=== PATIENT | female | born 1970 | race Caucasian/White ===

== ENCOUNTER 2019-12-25 10:32 | Outpatient (CLI) | payer OTHER, SELFPAY ==
--- NOTE | ~2019-12-25 | MM_ITS ---
EXAMINATION: MM screening [facility] BI w haile HISTORY: Screening mammogram TECHNIQUE: Craniocaudal and mediolateral oblique 3-D tomosynthesis images were obtained and synthetic 2-D images were generated. CAD analysis was submitted and interpreted. COMPARISON: Comparison to multiple prior studies sequentially, with oldest reviewed study dated 06/2013. BREAST PARENCHYMAL COMPOSITION: There are scattered areas of fibroglandular density. FINDINGS: There is no evidence of suspicious mass, calcification, or architectural distortion to sugg est malignancy in either breast. There has been no suspicious interval change. IMPRESSION: 1. No mammographic evidence of malignancy. 2. Recommend routine screening mammography in one year. BI-RADS Category 1: Negative Reviewed, dictated and finalized at location A. UE PACKER
== END 2019-12-25 10:33 | disposition home or self-care (01) ==
PROVIDERS: PCP Family Medicine; Visit Provider Obstetrics & Gynecology
DX: Z12.31 Encounter for screening mammogram for malignant neoplasm of breast (principal)
CPT/HCPCS: 77063; 77067

== ENCOUNTER → 2021-08-07 01:25 | Outpatient (CLI) | payer OTHER, SELFPAY ==
[2021-08-07 18:06] LABS: SARS-CoV-2 RNA PCR Negative
== END ==
PROVIDERS: PCP Family Medicine; Visit Provider Physician Assistant
DX: R68.89 Other general symptoms and signs (principal); Z20.822 Contact with and (suspected) exposure to COVID-19
CPT/HCPCS: C9803; U0003; U0005

== ENCOUNTER 2021-12-08 08:46 | Outpatient (CLI) | payer OTHER, SELFPAY ==
--- NOTE | ~2021-12-08 | MM_ITS ---
EXAMINATION: MM screening [place] [facility] BI w haile HISTORY: Screening mammogram TECHNIQUE: Craniocaudal and mediolateral oblique 3-D tomosynthesis images were obtained and synthetic 2-D images were generated. CAD analysis was submitted and interpreted. COMPARISON: 12/25/2019, 07/10/2018, 08/24/2016 BREAST PARENCHYMAL COMPOSITION: There are scattered areas of fibroglandular density. FINDINGS: A waxing and waning mass in the medial right breast is consistent with a cyst. There is no evidence of suspicious mass, calcification, or architectural distortion to suggest malignancy in eith er breast. There has been no suspicious interval change. IMPRESSION: 1. No mammographic evidence of malignancy. 2. Recommend routine screening mammography in one year. BI-RADS Category 2: Benign finding(s). Reviewed, dictated and finalized at location A. E SUPERINTENDENT
== END 2021-12-08 08:47 | disposition home or self-care (01) ==
LOC: ANHIMG 08:50
PROVIDERS: PCP Family Medicine; Visit Provider Obstetrics & Gynecology
DX: Z12.31 Encounter for screening mammogram for malignant neoplasm of breast (principal)
CPT/HCPCS: 77063; 77067

== ENCOUNTER 2022-04-27 02:52 | Day surgery (SDC) | payer OTHER, SELFPAY ==
[2022-04-07 14:02] VITALS: BMI 34.4
[2022-04-27 06:46] VITALS: BP 138/61; PULSE 83; RESP 20; TEMP 36.4; O2SAT 100; BMI 34.3
[2022-04-27] MEDS: LACTATED RINGERS 1,000 ML 150 ML IV CONT (06:59)
--- NOTE | 2022-04-27 07:56 | WPDANESEPPF ---
Anes - Initial Pre Proc Eval Procedure: Operation Date: 04/27/22 08:00 Proposed Procedures p Screening Colonoscopy - Neil Tovar MD Date/Time: 04/27/22 07:56 Surgeon: Neil Tovar MD Pre Op Diagnosis: neoplasm screening Patient Data Age: 51 Gender: F Height: 1.63 m Weight: 90.7 kg Last Vital Signs Temp 97.5 F L 04/27/22 06:46 Pulse 83 04/27/22 06:46 Resp 20 04/27/22 06:46 BP 138/61 04/27/22 06:46 Pulse Ox 100 04/27/22 06:46 O2 Del Method Room Air 04/27/22 06:46 Allergies Allergy/AdvReac Type Severity Reaction Status Date / Time Margarine Allergy Severe Swelling Uncoded 04/27/22 06:37 Home Medications Medication Instructions Recorded Confirmed Type nortriptyline 25 mg capsule 25 mg PO DAILY 10/15/19 04/07/22 History omeprazole 20 mg capsule,delayed 40 mg PO DAILY 10/15/19 04/07/22 History release meloxicam 7.5 mg tablet 7.5 mg PO DAILY PRN pain, moderate 01/13/21 04/07/22 Rx #30 tabs phentermine 37.5 mg capsule 37.5 mg PO DAILY #30 caps 02/04/22 04/07/22 Rx doxycycline monohydrate 100 mg 100 cap DAILY 04/07/22 04/07/22 History capsule Patient hx anesthesia problems: none Family hx anesthesia problems: none Results Review: All pre-operative results and documents have been reviewed as part of the pre-operative evaluation. [facility] Past Medical History Medical History [place] Asthma Cornea ulcer DJD (degenerative joint disease) of knee Eczema Fibromyalgia GERD (gastroesophageal reflux disease) Herpes Hypertension Left knee DJD Right knee DJD Seasonal allergies UTI (urinary tract infection) Weight gain Surgical History Surgical History H/O foot surgery H/O tubal ligation History of endometrial ablation History of knee surgery Hx of appendectomy Hx of section Hx of gastric bypass Family History Family History Father Hypertension Family history of elevated blood lipids Malignant neoplasm of prostate Grandparent Hypertension Carcinoma of colon Family history of malignant neoplasm of breast Family history of coronary artery disease Diabetes mellitus Other Arthritis Cerebrovascular accident Family history of arthritis Family history of gout Family history of malignant neoplasm High cholesterol Neuropathy Social History Social History Second hand tobacco smoke exposure: No Alcohol intake: never Alcohol use details: A couple times per year Substance use: never Substance use type: does not use Living arrangements: with family Gender identity (if verbalized by the patient): Female Spiritual care concerns: No Anes - Eval Final PreProcedure Day of Procedure 04/27/22 07:56 Patient weight: obese Heart: regular rate and rhythm Lungs: clear to auscultation Airway: Mallampati scale class II Neurological: alert and oriented Last oral intake: >/= 8 hours ASA classification: II Emergent: no Anesthetic plan: proceed Anesthesia type and monitoring: general GIVS and standard monitoring Results Review: All pre-operative results and documents have been reviewed as part of the pre-operative evaluation. Informed Consent: The patient's anesthetic plan and its attendant risks and benefits were discussed with the patient/family/POA. Questions were solicited and answers provided to the satisfaction of the patient/family/POA.
--- NOTE | 2022-04-27 08:14 | PM.HPGS ---
History of Present Illness History of Present Illness Consent: Risks, benefits, and alternatives have been discussed and questions answered. Patient agrees to proceed with procedure. Chief complaint: neoplasm screening Narrative: Kathrine Suárez is a 51 year old female here for first screening colonoscopy Review of Systems Constitutional: Constitutional: Denies headache(s) and Denies weakness Eyes: Eyes: Denies blurry vision ENT: Reports Normal hearing present, Denies headache(s) and Denies neck pain Cardiovascular: Cardiovascular: Denies chest pain and Denies dyspnea Respiratory: Respiratory: Denies dyspnea Gastrointestinal: Gastrointestinal: Reports no additional gastrointestinal complaints Genitourinary: Genitourinary: Denies dysuria Musculoskeletal: Musculoskeletal: Denies neck pain Integumentary/Breasts: Skin/Breast: Denies dry skin Neurologic: Reports Normal hearing present, Denies headache(s) and Denies weakness Psychiatric: Psychiatric: Denies anxiety Endocrine: Endocrine: Denies change in body appearance Hematologic/Lymphatic: Hematologic/Lymphatic: Denies easy bleeding Allergic/Immunologic: Allergic/Immunologic: Denies urticaria PMFSH Past Medical History Medical History (Updated 04/27/22 @ 08:17 by Neil Tovar MD) [place] Asthma Colon cancer screening Cornea ulcer DJD (degenerative joint disease) of knee Eczema Fibromyalgia GERD (gastroesophageal reflux disease) Herpes Hypertension Left knee DJD Right knee DJD Seasonal allergies UTI (urinary tract infection) Weight gain Surgical History Surgical History H/O foot surgery H/O tubal ligation History of endometrial ablation History of knee surgery Hx of appendectomy Hx of section Hx of gastric bypass Family History Family History Father Hypertension Family history of elevated blood lipids Malignant neoplasm of prostate Grandparent Hypertension Carcinoma of colon Family history of malignant neoplasm of breast Family history of coronary artery disease Diabetes mellitus Other Arthritis Cerebrovascular accident Family history of arthritis Family history of gout Family history of malignant neoplasm High cholesterol Neuropathy Social History Social History Second hand tobacco smoke exposure: No Alcohol intake: never Alcohol use details: A couple times per year Substance use: never Substance use type: does not use Living arrangements: with family Gender identity (if verbalized by the patient): Female Spiritual care concerns: No Meds Home Medications and Allergies Home Medications Medication Instructions Recorded Confirmed Type nortriptyline 25 mg capsule 25 mg PO DAILY 10/15/19 04/07/22 History omeprazole 20 mg capsule,delayed 40 mg PO DAILY 10/15/19 04/07/22 History release meloxicam 7.5 mg tablet 7.5 mg PO DAILY PRN pain, moderate 01/13/21 04/07/22 Rx #30 tabs phentermine 37.5 mg capsule 37.5 mg PO DAILY #30 caps 02/04/22 04/07/22 Rx doxycycline monohydrate 100 mg 100 cap DAILY 04/07/22 04/07/22 History capsule Allergies Allergy/AdvReac Type Severity Reaction Status Date / Time Margarine Allergy Severe Swelling Uncoded 04/27/22 06:37 Vital Signs Vital Signs - 24 hr 04/27/22 06:46 Temperature 97.5 F L Pulse Rate 83 Respiratory Rate 20 Blood Pressure 138/61 Pulse Oximetry 100 Oxygen Delivery Room Air Exam Const: General: comfortable and no acute distress HENMT: General nose exam: Normal nares present Eyes: General: appearance normal, both eyes and all related structures Neck: Neck: no JVD Resp: Auscultation: clear to auscultation bilaterally Cardio: Rate: regular rate Rhythm: regular rhythm GI: Inspection: non-distended GI Palp: Yes Soft to p
[2022-04-27 08:32] VITALS: BP 103/60; PULSE 68; RESP 21; O2SAT 100
[2022-04-27 08:42] VITALS: BP 111/73; PULSE 63; RESP 18; O2SAT 100
[2022-04-27 08:52] VITALS: BP 112/82; PULSE 69; RESP 20; O2SAT 100
== END 2022-04-27 08:55 | disposition home or self-care (01) ==
PROVIDERS: PCP Family Medicine; Visit Provider Internal Medicine Gastroenterology
PROC: 0DJD8ZZ Inspection of Lower Intestinal Tract, Via Natural or Artificial Opening Endoscopic (ICD-10-PCS; CPT 45378; principal; 2022-04-27 08:00)
DX: Z12.11 Encounter for screening for malignant neoplasm of colon (principal); I10 Essential (primary) hypertension; K21.9 Gastro-esophageal reflux disease without esophagitis; M79.7 Fibromyalgia; B00.9 Herpesviral infection, unspecified; L40.9 Psoriasis, unspecified; Z98.84 Bariatric surgery status; E66.9 Obesity, unspecified; Z68.34 Body mass index [BMI] 34.0-34.9, adult
CPT/HCPCS: 45378; J2001; J2704; J7120

== ENCOUNTER 2022-11-10 15:19 | Emergency (ER) | payer OTHER, SELFPAY ==
--- NOTE | ~2022-11-10 | XR_ITS ---
XR knee RT min 4V DATE: 11/10/2022 16:14 INDICATION: Twisting injury getting out of truck; right knee pain. TECHNIQUE: 4 views including crosstable lateral COMPARISON: 11/16/2020 right knee FINDINGS: No fracture or dislocation or joint effusion. Joint spaces are well preserved. There is mil d periarticular spurring of the patella. No radiopaque intra-articular loose body or chondrocalcinosi s. No periosteal reaction or bone destruction. IMPRESSION: Mild patellofemoral osteoarthritis Reviewed, dictated and finalized at location A. LE SEWER
--- NOTE | 2022-11-10 15:24 | ED.EXTPRO ---
HPI - Extremity Problem General Chief complaint: Extremity Injury, Lower <Priyanka Putnam APRN - Last Filed: 11/10/22 16:00> Stated complaint: Right Knee Pain <Priyanka Putnam APRN - Last Filed: 11/10/22 16:00> Time Seen by Provider: 11/10/22 15:27 <Priyanka Putnam APRN - Last Filed: 11/10/22 16:00> Source: patient, RN notes reviewed and old records reviewed <Priyanka Putnam APRN - Last Filed: 11/10/22 16:00> Mode of arrival: ambulatory <Priyanka Putnam APRN - Last Filed: 11/10/22 16:00> Limitations: no limitations <Priyanka Putnam APRN - Last Filed: 11/10/22 16:00> History of Present Illness HPI Narrative: 52-year-old female presents to the [facility] with medial right knee pain. Has a history of arthritis in her knee. Has had ?clean out? in the past. States that yesterday the pain started. Was getting out of her friend's truck when she thinks she may have done something but not sure. States that her knee has given out twice. Takes meloxicam daily. Has also taken ibuprofen. Has decreased range of motion. Reports that it will not bend. Currently using a walker Patient denies any direct trauma Has an appointment with an orthopedist in [facility] with a Dr. Gerhard Cosby <Priyanka Putnam APRN - Last Filed: 11/10/22 16:00> Onset (ago): day(s) (1) <Priyanka Putnam APRN - Last Filed: 11/10/22 16:00> Related Data Home medications: Home Medications Medication Instructions Recorded Confirmed nortriptyline 25 mg capsule 25 mg PO DAILY 10/15/19 11/10/22 omeprazole 20 mg capsule,delayed 40 mg PO DAILY 10/15/19 11/10/22 release <Priyanka Putnam APRN - Last Filed: 11/10/22 16:00> Allergies/Adverse reactions: Allergies Allergy/AdvReac Type Severity Reaction Status Date / Time Margarine Allergy Severe Swelling Uncoded 11/10/22 15:38 <Priyanka A. Indy, MARBLE SETTER HELPER - Last Filed: 11/10/22 16:00> Review of Systems Review of Systems: All systems reviewed & are unremarkable except as noted in HPI and below <Priyanka A. Indy, MARBLE SETTER HELPER - Last Filed: 11/10/22 16:00> Constitutional: Constitutional: Reports no additional constitutional complaints <Priyanka A. Indy, [employer]BLE SETTER HELPER - Last Filed: 11/10/22 16:00> Eyes: Eyes: Reports no additional eye complaints <Priyanka A. Indy, [employer]BLE SETTER HELPER - Last Filed: 11/10/22 16:00> ENT: Reports system reviewed and no additional complaints, except as documented <Priyanka A. Indy, [employer]BLE SETTER HELPER - Last Filed: 11/10/22 16:00> Cardiovascular: Cardiovascular: Reports no additional cardiovascular complaints, Denies chest pain and Denies dyspnea <Priyanka A. Indy, MARBLE SETTER HELPER - Last Filed: 11/10/22 16:00> Respiratory: Respiratory: Reports no additional respiratory complaints, Denies chest congestion, Denies cough and Denies dyspnea <Priyanka A. Indy, [employer]BLE SETTER HELPER - Last Filed: 11/10/22 16:00> Gastrointestinal: Gastrointestinal: Reports no additional gastrointestinal complaints, Denies abdominal pain, Denies nausea and Denies vomiting <Priyanka A. Indy, [employer]BLE SETTER HELPER - Last Filed: 11/10/22 16:00> Musculoskeletal: Musculoskeletal: Reports as per HPI, Reports arthralgias (Right knee) and Reports limited range of motion (Right knee) <Priyanka A. Indy, MARBLE SETTER HELPER - Last Filed: 11/10/22 16:00> Integumentary/Breasts: Skin/Breast: Reports system reviewed and no additional complaints, except as docu <Priyanka A. Indy, MARBLE SETTER HELPER - Last Filed: 11/10/22 16:00> Neurologic: Reports system reviewed and no additional complaints, except as documented <Priyanka A. Indy, MARBLE SETTER HELPER - Last Filed: 11/10/22 16:00> Psychiatric: Psychiatric: Reports no additional psychiatric complaints <Priyanka A. Indy, [employer]BLE SETTER HELPER - Last Filed: 11/10/22 16:00> Allergic/Immunologic: Allergic/Immunologic: Reports no additional allergic/immunologic complaints <Priyanka A. Indy, MARBLE SETTER HELPER - Last Filed: 11/10/22 16:00> [facility], [facility] Past Medical History Medical History: Medical History [place] Asthma Colon ca
[2022-11-10 15:27] VITALS: BP 140/79; PULSE 77; RESP 18; TEMP 36.7; O2SAT 100
--- NOTE | 2022-11-10 17:32 | PC.NURSE ---
1547- Pt transferred to [facility] for xray d/t xray being unavailable at this facility at this time. RN to RN report given via EUNICE Putnam
== END 2022-11-10 17:01 | disposition home or self-care (01) ==
PROVIDERS: Emergency Provider Nurse Practitioner; PCP Family Medicine
DX: M17.11 Unilateral primary osteoarthritis, right knee (principal); J45.909 Unspecified asthma, uncomplicated; K21.9 Gastro-esophageal reflux disease without esophagitis; I10 Essential (primary) hypertension
CPT/HCPCS: 73564; 99213; G0463

== ENCOUNTER 2023-10-11 00:07 | Day surgery (SDC) | payer OTHER, SELFPAY ==
[2023-09-26 14:37] VITALS: BMI 37.0
--- NOTE | 2023-10-09 11:21 | SUR.PREOP ---
Patient called regarding upcoming procedure. Reviewed preop instructions, appointment times, and procedure prep.
[2023-10-11 07:10] VITALS: BP 148/79; PULSE 72; RESP 18; TEMP 36.2; O2SAT 99; BMI 37.8
[2023-10-11] MEDS: LACTATED RINGERS 1,000 ML 150 ML IV CONT (07:29)
--- NOTE | 2023-10-11 08:17 | PM.HPGS ---
History of Present Illness History of Present Illness Consent: Risks, benefits, and alternatives have been discussed and questions answered. Patient agrees to proceed with procedure. Chief complaint: GERD without esophagitis Narrative: Kathrine Suárez is a 53 year old female with gerd worse at bedtime with regurgitation is eating late at night, using omeprazole daily, never had egd Review of Systems Constitutional: Constitutional: Denies headache(s) and Denies weakness Eyes: Eyes: Denies blurry vision ENT: Reports Normal hearing present, Denies headache(s) and Denies neck pain Cardiovascular: Cardiovascular: Denies chest pain and Denies dyspnea Respiratory: Respiratory: Denies dyspnea Gastrointestinal: Gastrointestinal: Reports no additional gastrointestinal complaints Genitourinary: Genitourinary: Denies dysuria Musculoskeletal: Musculoskeletal: Denies neck pain Integumentary/Breasts: Skin/Breast: Denies dry skin Neurologic: Reports Normal hearing present, Denies headache(s) and Denies weakness Psychiatric: Psychiatric: Denies anxiety Endocrine: Endocrine: Denies change in body appearance Hematologic/Lymphatic: Hematologic/Lymphatic: Denies easy bleeding Allergic/Immunologic: Allergic/Immunologic: Denies urticaria PMFSH Past Medical History Medical History (Updated 10/11/23 @ 08:17 by Neil Tovar MD) DJD (degenerative joint disease) of knee Fibromyalgia GERD (gastroesophageal reflux disease) Herpes Hypertension Hypothyroidism Surgical History Surgical History H/O foot surgery H/O tubal ligation 2007 History of endometrial ablation History of knee surgery right knee arthroscopy 04/15/2015 left knee arthroscopy 03/03/2015 Hx of appendectomy 1984 Hx of section Hx of gastric bypass gastric sleeve 07/17/2015 Family History Family History Father Hypertension Family history of elevated blood lipids Malignant neoplasm of prostate Grandparent Hypertension Carcinoma of colon Family history of malignant neoplasm of breast Family history of coronary artery disease Diabetes mellitus Other Arthritis Cerebrovascular accident Family history of arthritis Family history of gout Family history of malignant neoplasm High cholesterol Neuropathy Social History Social History (Updated 08/26/23 @ 09:58 by RADHA Bravo) Smoking status: Heavy tobacco smoker Second hand tobacco smoke exposure: No Alcohol intake: current Alcohol use details: A couple times per year Substance use: never Substance use type: does not use Lack of Transportation: No Lack of Food: Never True Current Housing: I Have Housing Concerned About Future Housing: No Difficulty Paying Gas/Electric Bills: No Difficulty Paying for Meds: No Currently Unemployed: No Education: Associate Degree Difficulty w/ Childcare or Family Care: No Living arrangements: with family Occupation/Education: occupation Gender identity (if verbalized by the patient): Female Sexual Orientation (if Verbalized by the Patient): Straight or Heterosexual Spiritual care concerns: No Meds Home Medications and Allergies Home Medications Medication Instructions Recorded Confirmed Type nortriptyline 25 mg capsule 25 mg PO DAILY 10/15/19 10/11/23 History omeprazole 20 mg capsule,delayed 40 mg PO DAILY 10/15/19 10/11/23 History release meloxicam 7.5 mg tablet 7.5 mg PO DAILY PRN pain, moderate 01/13/21 10/11/23 Rx #30 tabs esterified 1 tablet PO DAILY #90 tabs 05/26/23 10/11/23 Rx estrogens-methyltestosterone 1.25 mg-2.5 mg tablet (Covaryx) progesterone micronized 100 mg 100 mg PO QAM #90 caps 05/26/23 10/11/23 Rx capsule (Prometrium) acyclovir 400 mg tablet 400 mg PO BID 30 days #60 tabs 07/26/23 10/11/23 Rx fluticasone propionate 0.005 %
--- NOTE | 2023-10-11 08:21 | WPDANESEPPF ---
Anes - Initial Pre Proc Eval Procedure: Operation Date: 10/11/23 08:30 Proposed Procedures p Esophagogastroduodenoscopy - Neil Tovar MD Date/Time: 10/11/23 08:21 Surgeon: Neil Tovar MD Pre Op Diagnosis: GERD without esophagitis Patient Data Age: 53 Gender: F Height: 1.63 m Weight: 99.8 kg Last Vital Signs Temp 97.1 F L 10/11/23 07:10 Pulse 72 10/11/23 07:10 Resp 18 10/11/23 07:10 BP 148/79 H 10/11/23 07:10 Pulse Ox 99 10/11/23 07:10 O2 Del Method Room Air 10/11/23 07:10 Allergies Allergy/AdvReac Type Severity Reaction Status Date / Time Margarine Allergy Severe Swelling Uncoded 10/11/23 07:18 Home Medications Medication Instructions Recorded Confirmed Type nortriptyline 25 mg capsule 25 mg PO DAILY 10/15/19 10/11/23 History omeprazole 20 mg capsule,delayed 40 mg PO DAILY 10/15/19 10/11/23 History release meloxicam 7.5 mg tablet 7.5 mg PO DAILY PRN pain, moderate 01/13/21 10/11/23 Rx #30 tabs esterified 1 tablet PO DAILY #90 tabs 05/26/23 10/11/23 Rx estrogens-methyltestosterone 1.25 mg-2.5 mg tablet (Covaryx) progesterone micronized 100 mg 100 mg PO QAM #90 caps 05/26/23 10/11/23 Rx capsule (Prometrium) acyclovir 400 mg tablet 400 mg PO BID 30 days #60 tabs 07/26/23 10/11/23 Rx fluticasone propionate 0.005 % 1 applic topical BID #60 grams 08/25/23 10/11/23 Rx topical ointment escitalopram oxalate 10 mg tablet 10 mg PO DAILY #30 tabs 08/28/23 10/11/23 Rx duloxetine 60 mg capsule,delayed 60 mg PO DAILY #90 caps 09/27/23 10/11/23 Rx release Patient hx anesthesia problems: none Family hx anesthesia problems: none Results Review: All pre-operative results and documents have been reviewed as part of the pre-operative evaluation. PMFSH Past Medical History Medical History (Updated 10/11/23 @ 08:17 by Neil Tovar MD) DJD (degenerative joint disease) of knee Fibromyalgia GERD (gastroesophageal reflux disease) Herpes Hypertension Hypothyroidism Surgical History Surgical History H/O foot surgery H/O tubal ligation 2007 History of endometrial ablation History of knee surgery right knee arthroscopy 04/15/2015 left knee arthroscopy 03/03/2015 Hx of appendectomy 1984 Hx of section Hx of gastric bypass gastric sleeve 07/17/2015 Family History Family History Father Hypertension Family history of elevated blood lipids Malignant neoplasm of prostate Grandparent Hypertension Carcinoma of colon Family history of malignant neoplasm of breast Family history of coronary artery disease Diabetes mellitus Other Arthritis Cerebrovascular accident Family history of arthritis Family history of gout Family history of malignant neoplasm High cholesterol Neuropathy Social History Social History (Updated 08/26/23 @ 09:58 by RADHA Bravo) Smoking status: Heavy tobacco smoker Second hand tobacco smoke exposure: No Alcohol intake: current Alcohol use details: A couple times per year Substance use: never Substance use type: does not use Lack of Transportation: No Lack of Food: Never True Current Housing: I Have Housing Concerned About Future Housing: No Difficulty Paying Gas/Electric Bills: No Difficulty Paying for Meds: No Currently Unemployed: No Education: Associate Degree Difficulty w/ Childcare or Family Care: No Living arrangements: with family Occupation/Education: occupation Gender identity (if verbalized by the patient): Female Sexual Orientation (if Verbalized by the Patient): Straight or Heterosexual Spiritual care concerns: No Anes - Eval Final PreProcedure Day of Procedure 10/11/23 08:21 Patient weight: obese Heart: regular rate and rhythm Lungs: clear to auscultation Airway: Mallampati scale
[2023-10-11 08:34] VITALS: BP 126/76; PULSE 62; RESP 16; O2SAT 100
[2023-10-11 08:44] VITALS: BP 137/76; PULSE 56; RESP 16; O2SAT 100
[2023-10-11 08:54] VITALS: BP 143/85; PULSE 57; RESP 16; O2SAT 100
== END 2023-10-11 09:15 | disposition home or self-care (01) ==
PROVIDERS: PCP Family Medicine; Visit Provider Internal Medicine Gastroenterology
PROC: 0DJ08ZZ Inspection of Upper Intestinal Tract, Via Natural or Artificial Opening Endoscopic (ICD-10-PCS; CPT 43235; principal; 2023-10-11 08:30)
DX: K21.00 Gastro-esophageal reflux disease with esophagitis, without bleeding (principal); K44.9 Diaphragmatic hernia without obstruction or gangrene; I10 Essential (primary) hypertension; E03.9 Hypothyroidism, unspecified; M79.7 Fibromyalgia; B00.9 Herpesviral infection, unspecified; Z98.84 Bariatric surgery status; E66.9 Obesity, unspecified; Z68.37 Body mass index [BMI] 37.0-37.9, adult
CPT/HCPCS: 43239; 88305; J2704; J7120

== ENCOUNTER 2024-05-15 15:59 | Outpatient (CLI) | payer BC, SELFPAY ==
--- NOTE | ~2024-05-15 | MM_ITS ---
EXAMINATION: MM screening [facility] BI w haile HISTORY: Screening TECHNIQUE: Craniocaudal and mediolateral oblique 3-D tomosynthesis images were obtained and synthetic 2-D images were generated. CAD analysis was submitted and interpreted. COMPARISON: Comparison to multiple prior studies sequentially, with oldest reviewed study dated 02/12. BREAST PARENCHYMAL COMPOSITION: Not dense: There are scattered areas of fibroglandular density. FINDINGS: There is no evidence of suspicious mass, calcification, or architectural distortion to sugg est malignancy in either breast. There has been no suspicious interval change. IMPRESSION: 1. No mammographic evidence of malignancy. 2. Recommend routine screening mammography in one year. BI-RADS Category 1: Negative Reviewed, dictated and finalized at location B.
== END 2024-05-15 16:00 | disposition home or self-care (01) ==
LOC: ANHIMG 16:00
PROVIDERS: PCP Family Medicine; Visit Provider Obstetrics & Gynecology
DX: Z12.31 Encounter for screening mammogram for malignant neoplasm of breast (principal)
CPT/HCPCS: 77063; 77067